=== PATIENT | male | born 1970 | race Caucasian/White ===

== ENCOUNTER 2022-08-05 11:23 | Inpatient (IN) | payer BC ==
[~2022-08-05] VITALS: Ht 170.2 cm; Wt 134.7 kg
[2022-08-05] MEDS ORDERED: ASPIRIN 81 MG CHEW (CHILDREN'S ASA) ONE (11:36)
[2022-08-05] MEDS ORDERED: NS IV 1000 ML 1,000 ML ONE (11:38)
--- NOTE | 2022-08-05 11:49 | ED Cardiac General ---
History of Present Illness General Chief Complaint: Chest Pain Stated Complaint: CHEST PAIN Nursing Triage Note: PT CO OF ELVATED HR TODAY, HAD SOME DIZZINESS YESTERDAY, DENIES C/P HAS SL SOA. STATES HAS SOME CLAMMINESS. PT HAS HX A-FIB Source: patient Exam Limitations: no limitations History of Present Illness Date Seen by Provider: Aug 05, 2022 Time Seen by Provider: 11:38 Initial Comments Patient is a 52-year-old male who presents to the emergency room today with a chief complaint of rapid heartbeat, feeling generally unwell, little short of breath and feeling clammy. He states he has had A-fib for at least the last 5 years. He tells me metoprolol is what he takes to control his rate. He started having symptoms about 24 hours ago. States he missed his dose of Eliquis last night. He did take it this morning. No recent illnesses such as fevers, chills, cough or congestion. No urinary problems or bowel problems. He is not having any chest pain. He does not have a local six sigma black belt engineer but is interested in finding some one here at [place]. He has seen Dr. Og in [facility]. Timing/Duration: 24 hours Severity: moderate Activities at Onset: activity NTG SL KITCHEN LEAD: No ASA po KITCHEN LEAD: No Associated Systoms: Diaphoresis, Shortness of Air, Other (Palpitation) Allergies and Home Medications Allergies Coded Allergies: No Known Drug Allergies (Unverified , 08/05/22) Patient Home Medication List Home Medication List Reviewed: Yes Review of Systems Review of Systems Constitutional: see HPI, malaise EENTM: No Symptoms Reported Respiratory: No Symptoms Reported Cardiovascular: Palpitations Gastrointestinal: No Symptoms Reported Genitourinary: No Symptoms Reported Musculoskeletal: no symptoms reported Skin: other (Clammy) Psychiatric/Neurological: No Symptoms Reported All Other Systems Reviewed Negative Unless Noted: Yes Past Rhbyern-Blzxaa-Yxtnyp Hx Patient Social History Tobacco Use?: Yes Tobacco type used: Cigarettes Smoking Status: Current Everyday Smoker Substance use?: No Alcohol Use?: No Pt feels they are or have been: No Immunizations Up To Date Influenza Vaccine Up-to-Date: No; Not Current Past Medical History Surgery/Hospitalization HX: A-FIB Physical Exam Vital Signs Vital Signs - First Documented 08/05/22 11:30 Pulse 160 Resp 20 B/P (MAP) 80/68 (72) Pulse Ox 97 Capillary Refill : Less Than 3 Seconds Height, Weight, BMI Height: '" Weight: lbs. oz. 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 Norm as Tested Skin: Normal Color, Diaphoresis Progress/Results/Core Measures Results/Orders Lab Results Laboratory Tests Test 08/05/22 11:40 08/05/22 11:43 08/05/22 12:05 Range/Units White Blood Count 11.5 H 4.3-11.0 10^3/uL Red Blood Count 5.26 4.30-5.52 10^6/uL Hemoglobin 15.5 13.3-17.7 g/dL Hematocrit 45 40-54 % Mean Corpuscular Volume 86 80-99 fL Mean Corpuscular Hemoglobin 30 25-34 pg Mean Corpuscular Hemoglobin Concent 34 32-36 g/dL Red Cell Distribution Width 12.3 10.0-14.5 % Platelet Count 346 130-400 10^3/uL Mean Platelet Volume 11.0 9.0-12.2 fL Immature Granulocyte % (Auto) 0 % Neutrophils (%) (Auto) 64 42-75 % Lymphocytes (%) (Auto) 26 12-44 % Monocytes (%) (Auto) 10 0-12 % Eosinophils (%) (Auto) 0 0-10 % Basophils (%) (Auto) 0 0-10 % Neutrophils # (Auto) 7.4 1.8-7.8 10^3/uL Lymphocytes # (Auto) 3.0 1.0-4.0 10^3/uL Monocytes # (Auto) 1.1 H 0.0-1.0 10^3/uL Eosinophils # (Auto) 0.0 0.0-0.3 10^3/uL Basophils # (Auto) 0.0 0.0-0.1 10^3/uL Immature Granulocyte # (Auto) 0.0 0.0-0.1 10^3/uL Sodium Level 141 135-145 MMOL/L Potassium Level 4.0 3.6-5.0 MMOL/L Chloride Level 108 H 98-107 MMOL/L Carbon Dioxide Level 19 L 21-32 MMOL/L Anion Gap 14 5-14 MMOL/L Blood Urea Nitrogen 19 H 7-18 MG/DL Creatinine 0.99 0.60-1.30 MG/DL Estimat Glomerular Filtration Rate 92 BUN/Creatinine Ratio 19 Glucose Level 165 H 70-105 MG/DL Calcium Level 9.2 8.5-10.1 MG/DL Corrected Calcium 9.0 8.5-10.1 MG/DL Magnesium Level 1.9 1.6-2.4 MG/DL Total Bilirubin 0.4 0.1-1.0 MG/DL Aspartate Amino Transf (AST/SGOT) 17 5-34 U/L Alanine Aminotransferase (ALT/SGPT) 27 0-55 U/L Alkaline Phosphatase 70 40-136 U/L Troponin I < 0.028 <0.028 NG/ML Total Protein 7.4 6.4-8.2 GM/DL Albumin 4.2 3.2-4.5 GM/DL Glucometer 156 H 70-110 MG/DL Prothrombin Time 16.3 H 12.2-14.7 SEC INR Comment 1.3 0.8-1.4 Activated Partial Thromboplast Time 31 24-35 SEC My Orders Orders - FANTASMA LO MD Aspirin Chewable Tablet (Baby Aspirin Ch (08/05/22 11:36) Ns Iv 1000 Ml (Sodium Chloride 0.9%) (08/05/22 11:38) Cbc With Automated Diff (08/05/22 11:46) Magnesium (08/05/22 11:46) Chest 1 View, Ap/Pa Only (08/05/22 11:46) Ekg Tracing (08/05/22 11:46) Comprehensive Metabolic Panel (08/05/22 11:46) Protime With Inr (08/05/22 11:46) Partial Thromboplastin Time (08/05/22 11:46) O2 (08/05/22 11:46) Monitor-Rhythm Ecg Trace Only (08/05/22 11:46) Lipid Panel (08/06/22 06:00) Ed Iv/Invasive Line Start (08/05/22 11:46) Troponin I Farrah (08/05/22 11:46) Diltiazem Injection (Cardizem Injection) (08/05/22 12:00) Diltiazem Drip Pre-Mix (Cardizem Drip Pr (08/05/22 12:00) Diltiazem Injection (Cardizem Injection) (08/05/22 11:51) Ed Admission (Communication) (08/05/22 12:49) Medications Given in ED Current Medications Medications Dose Ordered Sig/Julee Route Start Time Stop Time Status Last Admin Dose Admin Aspirin 81 mg STK-MED ONCE .ROUTE 08/05/22 11:36 08/05/22 11:40 DC 08/05/22 11:40 324 MG Diltiazem HCl 20 mg ONCE ONCE IVP 08/05/22 12:00 08/05/22 12:01 DC 08/05/22 11:57 20 MG Sodium Chloride 1,000 ml @ ud STK-MED ONCE .ROUTE 08/05/22 11:38 08/05/22 11:43 DC 08/05/22 11:40 1,000 MLS/HR Vital Signs/I&O 08/05/22 08/05/22 08/05/22 11:30 11:57 12:06 Pulse 160 158 112 Resp 20 B/P (MAP) 80/68 (72) 134/110 116/96 Pulse Ox 97 Blood Pressure Mean: 72 Progress Progress Note : Time: 14:27 Progress Note Patient seen and examined by me, evaluation today includes physical exam, EKG x2, CBC, comprehensive metabolic panel, troponin, coags, chest x-ray. Physical exam pertinent for obese male no acute distress slightly diaphoretic irregularly irregular heart tachycardic in the 160s. Clear lungs. Soft abdomen, no edema in his lower extremities. No focal neurologic deficits. Mentating normally. V ital signs blood pressure initially difficult to get secondary to patient's obesity ultimately obtained a blood pressure in the 120s systolic. Differential diagnosis based on history and physical, A-fib with RVR, acute coronary syndrome, medication noncompliance resulting in rebound tachycardia Labs reviewed, CBC is normal, chemistry shows slightly elevated serum glucose otherwise basically normal, coags are normal, troponin is undetectable. Initial EKG A-fib RVR at 169. Chest x-ray unremarkable, clear. Patient treated with 20 mg of IV Cardizem as a bolus and then a 5 mg an hour drip started. Shortly after the bolus patient's heart rate came down into the 80s and 90s. Second EKG shows A-fib rate 110 with paired PVCs slightly prolonged QTc at 520. Patient is feeling much better after the bolus and drip initiated. He is agreeable to admission. Case is discussed with Dr. Diaz on for cardiology for consultation and Dr. Badillo on for the hospitalist service. Initial ECG Impression Date: Aug 05, 2022 Initial ECG Impression Time: 11:30 Initial ECG Rate: 169 Initial ECG Rhythm: A Fib/Flutter Initial ECG Impression: Atrial Fibrillation w/RVR EKG : EKG Time: 12:07 Rate: 110 Rhythm: A Fib/Flutter ECG Comparisson: Changed Comment Rate reduced from 1 60-1 10, paired PVCs noted, right bundle branch block, no overt ST segment elevation or depression Diagnostic Imaging Diagonstic Imaging: Xray Plain Films/CT/US/NM/MRI: chest Comments [facility]. [place], [place] NAME: YAO HERMOSILLO [facility] REC#: [id number] PT STATUS: REG ER : 1970 PHYSICIAN: FANTASMA LO MD ADMIT DATE: 08/05/22/ER Draft Date of Exam:08/05/22 CHEST 1 VIEW, AP/PA ONLY CLINICAL INDICATION: Patient with chest pain. EXAM: Portable chest x-ray upright view. COMPARISON: None. FINDINGS: Lungs/pleura: There is calcified granuloma involving the periphery of the left midlung field. Otherwise, lungs are clear. There is no pneumothorax. There is no pleural effusion. Mediastinum: Unremarkable. Pulmonary vasculature: Unremarkable. Heart: Unremarkable. Bones/extrathoracic soft tissue: There are degenerative spurs involving the thoracic spine. IMPRESSION: There is no radiographic evidence of acute cardiopulmonary process. Dictated on workstation # [id number] Dict: 08/05/22 1220 Trans: 08/05/22 1224 [facility] [id number] Interpreted by: VIDAL IRBY MD Electronically signed by: Critical Care Note Critical Care Start Time: 11:38 Stop Time: 13:00 Total Time (minutes) 30 minutes critical care time in evaluation and management of this patient with atrial fibrillation with rapid ventricular response. Time includes initial evaluation, review and interpretation of EKG demonstrating A-fib RVR, management of A-fib RVR with IV Cardizem bolus and drip. Review and interpretation of labs, imaging. Discussion with admitting provider, discussion with six sigma black belt engineer. Departure Communication (Admissions) Time/Spoke to Admitting Phy: 12:[address] Badillo (hospitalist) Time/Spoke to Consulting Phy: 12:[address] Diaz (Cards) Impression Primary Impression: Atrial fibrillation with RVR Disposition: ADMITTED INPATIENT Condition: Stable Admissions Decision to Admit Reason: Admit from ER (General) Decision to Admit/Date: Aug 05, 2022 Time/Decision to Admit Time: 13:12 Departure-Patient Inst. Referrals: LUIS SANCHES (PCP/Family) Primary Care Physician FANTASMA LO MD Aug 05, 2022 11:49
[2022-08-05 11:52] LABS: BASOPHILS % (AUTO) 0 % (0-10); EOSINOPHILS % (AUTO) 0 % (0-10); HEMATOCRIT 45 % (40-54); HEMOGLOBIN 15.5 g/dL (13.3-17.7); LYMPHOCYTES % (AUTO) 26 % (12-44); MEAN CORPUSCULAR HEMOGLOBIN 30 pg (25-34); MEAN CORPUSCULAR HGB CONC 34 g/dL (32-36); MEAN CORPUSCULAR VOLUME 86 fL (80-99); MONOCYTES # (AUTO) 1.1 10^3/uL (0.0-1.0); MONOCYTES % (AUTO) 10 % (0-12); NEUTROPHILS # (AUTO) 7.4 10^3/uL (1.8-7.8); NEUTROPHILS % (AUTO) 64 % (42-75); PLATELET COUNT 346 10^3/uL (130-400); WHITE BLOOD COUNT 11.5 10^3/uL (4.3-11.0)
[2022-08-05] MEDS ORDERED: dilTIAZem DRIP PRE-MIX 125 ML IV SCH (12:00)
[2022-08-05 12:01] LABS: ALBUMIN 4.2 GM/DL (3.2-4.5)
[2022-08-05 12:02] LABS: CALCIUM 9.2 MG/DL (8.5-10.1)
[2022-08-05 12:03] LABS: TOTAL PROTEIN 7.4 GM/DL (6.4-8.2)
[2022-08-05 12:05] LABS: BILIRUBIN,TOTAL 0.4 MG/DL (0.1-1.0)
[2022-08-05 12:07] LABS: CREATININE SERUM 0.99 MG/DL (0.60-1.30)
[2022-08-05 12:10] LABS: MAGNESIUM 1.9 MG/DL (1.6-2.4)
--- NOTE | 2022-08-05 12:25 | Diagnostic Imaging Report ---
CLINICAL INDICATION: Patient with chest pain. EXAM: Portable chest x-ray upright view. COMPARISON: None. FINDINGS: Lungs/pleura: There is calcified granuloma involving the periphery of the left midlung field. Otherwise, lungs are clear. There is no pneumothorax. There is no pleural effusion. Mediastinum: Unremarkable. Pulmonary vasculature: Unremarkable. Heart: Unremarkable. Bones/extrathoracic soft tissue: There are degenerative spurs involving the thoracic spine. IMPRESSION: There is no radiographic evidence of acute cardiopulmonary process. Dictated by: Dictated on workstation # [id number]
--- NOTE | 2022-08-05 12:48 | History & Physical-Hospitalist ---
History of Present Illness HPI/Chief Complaint Patient is a 52-year-old male who presented to the emergency department due to elevated heart rate and shortness of breath. He reports that he has A-fib and that this happens frequently. 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 He states his symptoms started yesterday and continued prompting him to seek evaluation in the emergency department. He previously followed with Dr. Og in [place] but now that he is no longer traveling he would like to establish with someone in [place]. He does take Eliquis regularly and has been but did miss his evening dose last night. He was given a Cardizem bolus and his heart rate improved into the 80s but then quickly bounced back up into the 120s while I was in the room. He is being admitted on a Cardizem drip to the ICU. Of note he did have some low blood pressures documented in the emergency department but after cuff was repositioned his systolics remained in the 150s and 160s. Source: patient Date Seen 08/05/22 Attending Physician Jeff Morin PCP Admitting Physician: Attending Physician: Referring Physician Date of Admission Home Medications & Allergies Home Medications Reviewed patient Home Medication Reconciliation performed by pharmacy medication reconciliations cartography technician and/or nursing. Patients Allergies have been reviewed. Allergies Allergies Coded Allergies No Known Drug Allergies (Unverified08/05/22) Past Tahldbq-Gqmixr-Fktevd Hx Patient Social History Tobacco Use?: Yes Tobacco type used: Cigarettes Smoking Status: Current Everyday Smoker Substance use?: No Alcohol Use?: No Pt feels they are or have been: No Current Status Advance Directives: No Communicates: Verbally Primary Language: Indian Preferred Spoken Language: Indian Is interpretation needed?: No Implanted or Applied Medical D: None Past Medical History Atrial Fibrillation, Hypertension Diabetes, Non-Insulin dep Review of Systems Constitutional: see HPI Physical Exam Physical Exam Vital Signs Vital Signs - First Documented 08/05/22 11:30 Pulse 160 Resp 20 B/P (MAP) 80/68 (72) Pulse Ox 97 Capillary Refill : Less Than 3 Seconds Height, Weight, BMI Height: '" Weight: lbs. oz. kg; 57.00 BMI Method: General Appearance: No Apparent Distress, Obese Respiratory: Lungs Clear, No Accessory Muscle Use Cardiovascular: No Murmur, Irregularly Irregular, Tachycardia Gastrointestinal: Normal Bowel Sounds, Non Tender, Soft Extremity: No Calf Tenderness, No Pedal Edema Neurologic/Psychiatric: Alert, Oriented x3, Normal Mood/Affect Skin: Normal Color, Warm/Dry Results Results/Procedures Labs Laboratory Tests 08/05/22 11:40 Patient resulted labs reviewed. Imaging: Reviewed Imaging Report Imaging [facility]. [place], [place] NAME: YAO HERMOSILLO [facility] REC#: [id number] PT STATUS: REG ER : 1970 PHYSICIAN: FANTASMA LO MD ADMIT DATE: 08/05/22/ER Signed Date of Exam:08/05/22 CHEST 1 VIEW, AP/PA ONLY CLINICAL INDICATION: Patient with chest pain. EXAM: Portable chest x-ray upright view. COMPARISON: None. FINDINGS: Lungs/pleura: There is calcified granuloma involving the periphery of the left midlung field. Otherwise, lungs are clear. There is no pneumothorax. There is no pleural effusion. Mediastinum: Unremarkable. Pulmonary vasculature: Unremarkable. Heart: Unremarkable. Bones/extrathoracic soft tissue: There are degenerative spurs involving the thoracic spine. IMPRESSION: There is no radiographic evidence of acute cardiopulmonary process. Dictated by: Dictated on workstation # [id number] Dict: 08/05/22 1220 Trans: 08/05/22 1229 CV [id number] Interpreted by: VIDAL IRBY MD Electronically signed by: VIDAL IRBY MD 08/05/22 1229 Assessment/Plan Admission Diagnosis atrial fibrillation with RVR Admission Status: Inpatient Order (span 2 midnights) Reason for Inpatient Admission: see below Assessment and Plan atrial fibrillation with RVR HTN Cardiem gtt Continue eliquis (reports taking it daily but last filled in May per records?) Telemetry Cardiology consulted, appreciate recs Trend BP with cardizem NIDDMII BS 165 on arrival Takes metformin and glimepiride at home SSI for now DVT ppx: Eliquis Diagnosis/Problems Diagnosis/Problems (1) Hypertension (2) Non-insulin dependent type 2 diabetes mellitus (3) Obesity (4) Atrial fibrillation with RVR (5) Tobacco abuse Clinical Quality Measures AMI/AHF: ASA po Prior to arrival: BETHANY Zimmerman MD Aug 05, 2022 12:48
[2022-08-05 13:22] LABS: INR 1.3 (0.8-1.4); PROTHROMBIN TIME PATIENT 16.3 SEC (12.2-14.7)
[2022-08-05] MEDS ORDERED: polyethylene glycoL POWDER 17 GM (MIRALAX) PACK PO PRN (14:30)
[2022-08-05] MEDS ORDERED: MELATONIN 3 MG TABLET PO PRN (14:30)
[2022-08-05] MEDS ORDERED: ONDANSETRON 4 MG/2 ML (SDV) Z0FRAN IV PRN (14:30)
[2022-08-05] MEDS ORDERED: ACETAMINOPHEN 325 MG TABLET PO PRN (14:30)
[2022-08-05] MEDS ORDERED: CALCIUM CARBONATE 500 MG (TUMS) TAB.CHEW PO PRN (14:30)
--- NOTE | 2022-08-05 14:44 | Tele-ICU Consult ---
Progress Note 52 y/o male with known prior hx of a fib on eloquis and metoprolol Presents with fast heart rate EKG shiws A fib/rvr Troponins negative, no chest pain IMP" a fib rvr PLAN: cardizem bolus and drip To ICU for monitoting Cardiology to follow Focused Exam Height, Weight, BMI Height: '" Weight: lbs. oz. kg; 57.00 BMI Method: Labs Laboratory Tests 08/05/22 11:40 Results Results/Procedures Lab Laboratory Tests 08/05/22 11:40 Results Labs Labs Laboratory Tests 08/05/22 11:40: White Blood Count 11.5H, Red Blood Count 5.26, Hemoglobin 15.5, Hematocrit 45, Mean Corpuscular Volume 86, Mean Corpuscular Hemoglobin 30, Mean Corpuscular Hemoglobin Concent 34, Red Cell Distribution Width 12.3, Platelet Count 346, Mean Platelet Volume 11.0, Immature Granulocyte % (Auto) 0, Neutrophils (%) (Auto) 64, Lymphocytes (%) (Auto) 26, Monocytes (%) (Auto) 10, Eosinophils (%) (Auto) 0, Basophils (%) (Auto) 0, Neutrophils # (Auto) 7.4, Lymphocytes # (Auto) 3.0, Monocytes # (Auto) 1.1H, Eosinophils # (Auto) 0.0, Basophils # (Auto) 0.0, Immature Granulocyte # (Auto) 0.0, Sodium Level 141, Potassium Level 4.0, Chloride Level 108H, Carbon Dioxide Level 19L, Anion Gap 14, Blood Urea Nitrogen 19H, Creatinine 0.99, Estimat Glomerular Filtration Rate 92, BUN/Creatinine Ratio 19, Glucose Level 165H, Calcium Level 9.2, Corrected Calcium 9.0, Magnesium Level 1.9, Total Bilirubin 0.4, Aspartate Amino Transf (AST/SGOT) 17, Alanine Aminotransferase (ALT/SGPT) 27, Alkaline Phosphatase 70, Troponin I < 0.028, Total Protein 7.4, Albumin 4.2 08/05/22 11:43: Glucometer 156H 08/05/22 12:05: Prothrombin Time 16.3H, INR Comment 1.3, Activated Partial Thromboplast Time 31 AN LOWE MD Aug 05, 2022 14:44
[2022-08-05] MEDS: NS IV 1000 ML 1,000 ML IV SCH ×2 (15:29→23:59)
[2022-08-05] MEDS: inSUlin ASPART (NovoLOG) 1 UNIT/0.01 ML (CHARGE PER UNIT) SC SCH ×2 (16:09→20:49)
[2022-08-05 16:52] LABS: FREE T4 (FREE THYROXINE) 0.83 NG/DL (0.70-1.48)
--- NOTE | 2022-08-05 16:56 | CONSULTATION REPORT ---
DATE OF SERVICE: 08/05/2022 CHIEF COMPLAINT: Weakness, palpitations. HISTORY OF PRESENT ILLNESS: The patient is a 52-year-old gentleman with a history of paroxysmal atrial fibrillation dating back approximately 5 years, diabetes, obstructive sleep apnea, on CPAP, hypertension, who presents for evaluation of weakness and fatigue and palpitations. The patient states that he was diagnosed with atrial fibrillation approximately 5 years prior. He has been on metoprolol and Eliquis. He is managed by a industrial hygiene technician in [place]. He states that he recently moved up into this area and last saw his industrial hygiene technician approximately one year ago. He states that he fills his prescriptions outside of town and last took Eliquis on the day prior to admission in the morning, he did forget the evening dose. He states that he generally does not forget Eliquis doses. Otherwise, he comments that he began to experience some lightheadedness, dizziness, clamminess, and weakness and in that setting decided to come in for evaluation. He is somewhat unclear as to how long he has been experiencing this. He says that he may have been experiencing this for up to a week recently, but is not sure. He comments that he "pops" back and forth quite regularly and at this time given the fact that his symptoms would not morales, he decided to come in for evaluation. Here in the Emergency Room, his chest x-ray was negative for any acute process. EKG demonstrated atrial fibrillation with rapid ventricular response at approximately 160 beats per minute. He denies any flu-like symptoms. He just notes fatigue. He denies any chest pain, chest pressure, chest heaviness. No presyncope, syncope. No PND, no orthopnea. In the emergency room, he was treated with diltiazem 20 IV x1 and started on a diltiazem drip. REVIEW OF SYSTEMS: All systems were reviewed and are negative except for what has been described in HPI. PAST MEDICAL HISTORY: Paroxysmal atrial fibrillation, on Eliquis and metoprolol, diabetes, obstructive sleep apnea, on CPAP, hypertension. MEDICATIONS: Currently include Eliquis 5 mg p.o. b.i.d., metoprolol 50 mg p.o. b.i.d. ALLERGIES: NO KNOWN DRUG ALLERGIES. 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 He currently vapes. Does have a history of smoking, last was approximately 10 years ago. He does drink, states up to approximately 10 shots per night and prefers whiskey. FAMILY HISTORY: Significant for grandfather with heart disease. HOME PHYSICAL EXAMINATION: VITAL SIGNS: T-max, afebrile, heart rate 110-160s, respiratory rate 20, blood pressure 80-134 over 60s-110s, satting greater than 97% on room air. GENERAL: He is in no acute distress. He is resting comfortably in the bed. NECK: Soft and supple. No cervical lymphadenopathy or thyromegaly. LUNGS: Distant, but no pamella wheezing, rales or rhonchi. HEART: Irregularly irregular, tachycardic, otherwise distant heart sounds. No pamella murmurs, gallops or rubs are appreciated. ABDOMEN: Obese, soft, nontender, nondistended, no hepatosplenomegaly. EXTREMITIES: Warm and well perfused. He has no cyanosis or clubbing. He does have trace edema in the bilateral lower extremities. SKIN: No lesions, rashes or ecchymosis are noted. LABS AND IMAGING: Significant for white blood cell count of 11.5, hematocrit of 45, platelets of 346. LFTs within normal limits. INR is 1.3. Sodium 141, potassium 4.0, chloride 108, bicarbonate 19, BUN 19, creatinine is 1.0. Chest x-ray shows no acute intrathoracic process. EKG demonstrates atrial fibrillation with rapid ventricular response to the 160s, right bundle branch block and a left anterior fascicular block. ASSESSMENT AND PLAN: In short, the patient is a 52-year-old gentleman with the above-mentioned medical problems who presents for evaluation of palpitations and fatigue. First issue is atrial fibrillation with rapid ventricular response. His heart rates are controlled with diltiazem down in the 80s-110 range. He did have a transient drop in his blood pressure, but has subsequently come up. For now, we will continue him on the diltiazem drip and look to reinitiate his Eliquis as well as his metoprolol at half dose to start 25 mg p.o. b.i.d. I do not think pursuing a DC cardioversion strategy makes sense, particularly with the patient stating that he has been dealing with this for the better part of 5 years and pops back and forth from normal sinus into the AFib regularly. We would only consider cardioversion should he become hypotensive for an extended period of time. DISPOSITION: We will continue to follow along. We will obtain an echocardiogram. We will also check lactate, BNP, trend his troponins. Check an A1c and fasting lipid panel for risk factor stratification purposes as well. Thank you very much for allowing me to participate in his care. Job ID: [id number] DocumentID: [id number] Dictated Date: 08/05/2022 16:00:22 [employer] Lumite Injector Date: 08/05/2022 16:54:00 Dictated By: CLAU DAWSON MD MTDD
[2022-08-05] MEDS: dilTIAZem DRIP PRE-MIX 125 ML IV SCH (18:56)
[2022-08-05] MEDS: APIXABAN 5 MG (ELIQUIS) TABLET PO SCH (20:43)
[2022-08-05] MEDS ORDERED: meTOprolol TARTRATE 25 MG (LOPRESSOR) TABLET PO SCH (21:00)
[2022-08-06] MEDS: dilTIAZem DRIP PRE-MIX 125 ML IV SCH (03:06)
[2022-08-06 04:16] LABS: HEMATOCRIT 41 % (40-54); HEMOGLOBIN 13.7 g/dL (13.3-17.7); MEAN CORPUSCULAR HEMOGLOBIN 29 pg (25-34); MEAN CORPUSCULAR HGB CONC 34 g/dL (32-36); MEAN CORPUSCULAR VOLUME 87 fL (80-99); MEAN PLATELET VOLUME 11.2 fL (9.0-12.2); PLATELET COUNT 263 10^3/uL (130-400); WHITE BLOOD COUNT 9.5 10^3/uL (4.3-11.0)
[2022-08-06 04:32] LABS: BUN/CREATININE RATIO 18; CALCIUM 8.4 MG/DL (8.5-10.1); CARBON DIOXIDE 19 MMOL/L (21-32); CHLORIDE 111 MMOL/L (98-107); CHOLESTEROL 131 MG/DL (< 200); CREATININE SERUM 0.88 MG/DL (0.60-1.30); GFR ESTIMATED 104; GLUCOSE 133 MG/DL (70-105); HDL CHOLESTEROL 26 MG/DL (40-60); POTASSIUM 3.7 MMOL/L (3.6-5.0); SODIUM 141 MMOL/L (135-145); TRIGLYCERIDES 149 MG/DL (<150); VLDL CHOLESTEROL 30 MG/DL (5-40)
[2022-08-06] MEDS: KCL 20 MEQ TAB (K-DUR) PO SCH (04:54)
[2022-08-06] MEDS: POTASSIUM CL 10MEQ/50ML IVPB 50 ML IV SCH (04:54)
[2022-08-06] MEDS ORDERED: NS IV 500 ML 500 ML IV PRN (05:00)
[2022-08-06] MEDS ORDERED: KCL 20 MEQ TAB (K-DUR) PO ONE (06:00)
[2022-08-06] MEDS: MAGNESIUM 1 GM/100 ML IVPB 100 ML IV SCH (06:12)
[2022-08-06] MEDS: inSUlin ASPART (NovoLOG) 1 UNIT/0.01 ML (CHARGE PER UNIT) SC SCH ×4 (06:13→22:07)
[2022-08-06] MEDS: APIXABAN 5 MG (ELIQUIS) TABLET PO SCH ×2 (07:57→20:12)
[2022-08-06] MEDS: NS IV 1000 ML 1,000 ML IV SCH ×2 (07:58→15:07)
[2022-08-06] MEDS: meTOprolol TARTRATE 25 MG (LOPRESSOR) TABLET PO SCH ×2 (08:48→20:12)
--- NOTE | 2022-08-06 09:28 | Cardiology Progress Note ---
Subjective Date Seen by Provider: Aug 06, 2022 Time Seen by Provider: 07:45 Subjective/Events-last exam No acut4e events overnight. Still in AF but HRs controlled. No sxs. States he feels good. Focused Exam Lactate Level 08/05/22 16:27: Lactic Acid Level 1.34 Objective-Cardiology Exam Last Set of Vital Signs Vital Signs 08/06/22 08:00 Temp 36.8 Pulse 93 B/P (MAP) 134/93 (107) Pulse Ox 94 O2 Delivery Room Air I&O Intake and Output 08/06/22 00:00 Intake Total 3075 ml Output Total 575 ml Balance 2500 ml Intake Oral 950 ml IV Total 2125 ml Output Urine Total 575 ml Daily Weight Change No Other physical findings GENERAL: He is in no acute distress. He is resting comfortably in the bed. NECK: Soft and supple. No cervical lymphadenopathy or thyromegaly. LUNGS: Distant lung sounds, but no pamella wheezing or rhonchi. Faint rales are noted. HEART: Irregularly irregular, otherwise distant heart sounds. No pamella murmurs, gallops or rubs are appreciated. ABDOMEN: Obese, soft, nontender, nondistended, no hepatosplenomegaly. EXTREMITIES: Warm and well perfused. He has no cyanosis or clubbing. He does have trace edema in the bilateral lower extremities. SKIN: No lesions, rashes or ecchymosis are noted. Results Lab Laboratory Tests 08/05/22 11:40 08/06/22 04:05 A/P-Cardiology Assessment/Plan 52M with the above-mentioned medical problems who presents for evaluation of palpitations and fatigue. \\ ## AF with rapid ventricular response: HRs now in the 60s-80s this AM. continues on diltiazem gtt. TSH and FT4 in normal range. Tn neg. - cont Eliquis 5 bid - increase metop to 25 bid - transition to dilt immediate release Q6 basis - d/c dilt gtt - f/u ECHO from today. - I do not think pursuing a DC cardioversion strategy makes sense in this gentleman, particularly with the patient stating that he has been dealing with this for the better part of 5 years and "pops back and forth from normal sinus into the AFib regularly." Heart rate control would be the strategy of choice here. We would only consider cardioversion should he become hypotensive for an extended period of time. Best option would be referral to EP as outpatient for consideration of AF ablation. ##DM: f/u on a1c, not on anti-diabetic regimen ## Risk factor modification: - f./u on a1c - lipid panel (*TG 149, TC 131, LDL 84, HDL 26) ## DISPOSITION: - cont to follow along. . CLAU DAWSON MD Aug 06, 2022 09:28
[2022-08-06] MEDS ORDERED: FUROSEMIDE 40 MG/4 ML INJ (LASIX) IVP ONE (09:30)
[2022-08-06] MEDS ORDERED: CATHETER FLUSH 10 ML SYR IVP PRN (10:00)
[2022-08-06] MEDS ORDERED: APIX5TAB PO (14:19)
[2022-08-06] MEDS ORDERED: MTP100TCR PO (14:19)
[2022-08-06] MEDS ORDERED: GLIM2TAB4 PO (14:19)
--- NOTE | 2022-08-06 17:27 | Progress Note - Hospitalist ---
Subjective HPI/CC On Admission Date Seen by Provider: Aug 06, 2022 Time Seen by Provider: 09:10 Patient is a 52-year-old male who presented to the emergency department due to elevated heart rate and shortness of breath. He reports that he has A-fib and that this happens frequently. 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 He states his symptoms started yesterday and continued prompting him to seek evaluation in the emergency department. He previously followed with Dr. Og in [place] but now that he is no longer traveling he would like to establish with someone in [place]. He does take Eliquis regularly and has been but did miss his evening dose last night. He was given a Cardizem bolus and his heart rate improved into the 80s but then quickly bounced back up into the 120s while I was in the room. He is being admitted on a Cardizem drip to the ICU. Of note he did have some low blood pressures documented in the em ergency department but after cuff was repositioned his systolics remained in the 150s and 160s. Subjective/Events-last exam He is feeling well. He has no complaints. He denies chest pain and palpitations. Focused Exam Lactate Level 08/05/22 16:27: Lactic Acid Level 1.34 Objective Exam Vital Signs Vital Signs Date Time Temp Pulse Resp B/P (MAP) Pulse Ox O2 Delivery O2 Flow Rate FiO2 08/06/22 16:00 93 Room Air 08/06/22 16:00 125 141/109 (120) 08/06/22 15:55 36.8 08/05/22 14:30 12 Capillary Refill : Less Than 3 Seconds General Appearance: No Apparent Distress, Obese Respiratory: Lungs Clear, No Respiratory Distress Cardiovascular: No Murmur, Irregularly Irregular Gastrointestinal: Normal Bowel Sounds, Soft Extremity: Normal Inspection, No Pedal Edema Neurologic/Psychiatric: Alert, Normal Mood/Affect Skin: Normal Color, Warm/Dry Results/Procedures Lab Laboratory Tests 08/06/22 04:05 Patient resulted labs reviewed. Imaging: Reviewed Imaging Report Assessment/Plan Assessment and Plan Assess & Plan/Chief Complaint AFib with RVR HTN Cardiology following Cardizem Metoprolol Eliquis NIDDMII Resume Glimepiride Sliding scale insulin Morbid obesity Clinically significant, no acute management needs Diagnosis/Problems Diagnosis/Problems (1) Atrial fibrillation with RVR Status: Acute (2) Non-insulin dependent type 2 diabetes mellitus Status: Acute (3) Hypertension Status: Acute (4) Obesity Status: Chronic Clinical Quality Measures AMI/AHF: ASA po Prior to arrival: DONA Hannon MD Aug 06, 2022 17:27
[2022-08-07 04:48] LABS: HEMATOCRIT 42 % (40-54); HEMOGLOBIN 14.4 g/dL (13.3-17.7); MEAN CORPUSCULAR HEMOGLOBIN 30 pg (25-34); MEAN CORPUSCULAR HGB CONC 35 g/dL (32-36); MEAN CORPUSCULAR VOLUME 86 fL (80-99); MEAN PLATELET VOLUME 11.5 fL (9.0-12.2); PLATELET COUNT 250 10^3/uL (130-400); WHITE BLOOD COUNT 9.3 10^3/uL (4.3-11.0)
[2022-08-07 05:09] LABS: POTASSIUM 3.6 MMOL/L (3.6-5.0)
[2022-08-07 05:10] LABS: CALCIUM 8.9 MG/DL (8.5-10.1)
[2022-08-07 05:14] LABS: CREATININE SERUM 0.86 MG/DL (0.60-1.30)
[2022-08-07] MEDS: inSUlin ASPART (NovoLOG) 1 UNIT/0.01 ML (CHARGE PER UNIT) SC SCH ×2 (05:57→11:14)
[2022-08-07] MEDS: POTASSIUM CL 10MEQ/50ML IVPB 50 ML IV SCH (05:57)
[2022-08-07] MEDS: MAGNESIUM 1 GM/100 ML IVPB 100 ML IV SCH ×5 (05:57→14:44)
[2022-08-07] MEDS: KCL 20 MEQ TAB (K-DUR) PO SCH (05:57)
[2022-08-07] MEDS ORDERED: GLIMEPIRIDE 2 MG (AMARYL) TAB PO SCH (06:30)
[2022-08-07] MEDS ORDERED: metFORMIN 500 MG (GLUCOPHAGE) TAB PO SCH (07:00)
[2022-08-07] MEDS: APIXABAN 5 MG (ELIQUIS) TABLET PO SCH (08:16)
[2022-08-07] MEDS: meTOprolol TARTRATE 25 MG (LOPRESSOR) TABLET PO SCH (08:16)
[2022-08-07] MEDS ORDERED: AMIODARONE FOR BOLUS 150 MG in NS (IVPB) 100 ML IV ONE (08:30)
[2022-08-07] MEDS ORDERED: AMIODARONE INJECTION 450 MG in NORMAL SALINE 250 ML IV SCH (08:30)
[2022-08-07 08:33] LABS: MAGNESIUM 1.7 MG/DL (1.6-2.4); PHOSPHORUS 3.8 MG/DL (2.3-4.7)
[2022-08-07] MEDS ORDERED: KCL 20 MEQ TAB (K-DUR) PO ONE (09:00)
--- NOTE | 2022-08-07 09:04 | Cardiology Progress Note ---
Subjective Date Seen by Provider: Aug 07, 2022 Time Seen by Provider: 07:45 Subjective/Events-last exam No acute issues overnight. HRs increased after transition to dilt po. AF with RVR to 140s noted overnight. Focused Exam Lactate Level 08/05/22 16:27: Lactic Acid Level 1.34 Objective-Cardiology Exam Last Set of Vital Signs Vital Signs 08/07/22 15:29 Temp 36.5 I&O Intake and Output 08/07/22 00:00 Intake Total 2147 ml Output Total 4375 ml Balance -2228 ml Intake Oral 2022 ml IV Total 125 ml Output Urine Total 4375 ml Other physical findings GENERAL: He is in no acute distress. He is resting comfortably in the bed. NECK: Soft and supple. No cervical lymphadenopathy or thyromegaly. LUNGS: Distant lung sounds, but no pamella wheezing or rhonchi. Faint rales are noted. HEART: Irregularly irregular, otherwise distant heart sounds. No pamella murmurs, gallops or rubs are appreciated. ABDOMEN: Obese, soft, nontender, nondistended, no hepatosplenomegaly. EXTREMITIES: Warm and well perfused. He has no cyanosis or clubbing. He does have trace edema in the bilateral lower extremities. SKIN: No lesions, rashes or ecchymosis are noted. Results Lab Laboratory Tests 08/07/22 04:30 A/P-Cardiology Assessment/Plan 52M with the above-mentioned medical problems who presents for evaluation of palpitations and fatigue. \ ## AF with rapid ventricular response: HRs back up to 140s in AF with RVR. ECHO with normal LV/RV size and funciton. LVEF of 55-60%; trace TR wiht RVSP of 40mmHgon. - start amio bolus and gtt iv - cont Eliquis 5 bid - increase metop to 50 bid - cont dilt 50 Q6 for now - pt converted to NSR on amio bolus this afternoon - technically [id number] score of 1 (HTN)- Eliquis not indicated but pt has already been on for many years. ##pre-DM: a1c returned at 5.9 ## Risk factor modification: - f./u on a1c - lipid panel (*TG 149, TC 131, LDL 84, HDL 26) ## DISPOSITION: - cont to follow along. - cont amio, dilt, metop, eliquis. - Best option would be referral to EP as outpatient for consideration of AF ablation. ## HOME REGIMEN FOLLOWS: - amiodarone 400mg po TID x 7 days, amiodarone 400mg po BID x 7 days, amiodarone 400mg po QD x 7 days, then amiodarone 200mg po therafter - metop 75mg po BID - eliquis 5mg po BID - lisinopril 5mg po QD - HCTZ 25mg po QD CLAU DAWSON MD Aug 07, 2022 09:04
--- NOTE | 2022-08-07 10:09 | Tele-ICU Progress Note ---
Subjective Date Seen by a Provider: Aug 07, 2022 Time Seen by a Provider: 10:09 Subjective/Events-last exam (Tele-ICU Physician , Progress Note ) Service provided via interactive audio and video telecommunications E-CARE system to a patient admitted to ICU bed in [facility]. Patient is seen today due to persistent need of ICU care Available chart/ vitals / labs / Images reviewed Video assessment done using teleICU camera, rest of exam as per RN Discussed with RN Events overnight : Afebrile hemodynamically stable Respiratory - I/O = Drips: Pressors- no Hospital course: A/P A fib RVR - as per cards - on amio - CV planned for today , EP as potpatient - AC with Eliquis ÓSCAR- on cpap at home - ? compliance Mild pulm HTN - RVSP 40 mmGh - due to above ? DM II - as per PCP Lines : , (Central Line Necessity Reviewed) Luciano: OG: Nutrition: Analgesia: Anxiety/ delirium VTE Prophylaxis: Stress Ulcer Prophylaxis: Plans in collaboration with bedside consultants and IM MDs. Discussed with RN to reach out if any questions or concerns Case and care daily discussed on multidisciplinary rounds ( RN, PharmD, Nutrition and Respiratory Therapy) A total of 5 minutes of critical care time was devoted to this patient today, required to treat and/or prevent further deterioration of critical care condition ( as above ) . I am remotely monitoring this patient from another state. I am unable to do the bedside exam, and history/physical and pertinent information is taken from other notes in the computer and bedside staff. Sepsis Event Evaluation Height, Weight, BMI Height: '" Weight: lbs. oz. kg; 46.98 BMI Method: Focused Exam Lactate Level 08/05/22 16:27: Lactic Acid Level 1.34 Exam Exam Patient acknowledged, consented, and participated in this virtual visit which was conducted using real time audio/video Vital Signs Date Time Temp Pulse Resp B/P (MAP) Pulse Ox O2 Delivery O2 Flow Rate FiO2 08/07/22 10:00 89 120/84 (96) 93 Room Air 08/07/22 09:00 112 121/59 (79) 94 Room Air 08/07/22 08:50 134 136/72 08/07/22 08:22 36.4 08/07/22 08:00 156 136/72 (93) 96 Room Air 08/07/22 07:50 135 08/07/22 07:00 104 94/85 (88) 96 Room Air 08/07/22 06:00 105 152/102 (119) 96 Room Air 08/07/22 05:00 124 128/84 (99) 91 Room Air 08/07/22 04:00 114 127/89 (109) 92 Room Air 08/07/22 04:00 93 Room Air 08/07/22 03:26 36.0 08/07/22 03:00 106 107/82 (90) 89 Room Air 08/07/22 02:00 103 107/80 (90) 93 Room Air 08/07/22 01:00 98 101/65 (81) 93 Room Air 08/07/22 01:00 118 08/07/22 00:00 95 133/74 (80) 89 Room Air 08/06/22 23:59 93 Room Air 08/06/22 23:47 36.5 08/06/22 23:00 95 129/96 (101) 95 Room Air 08/06/22 22:00 83 93 Room Air 08/06/22 21:00 106 106/61 (79) 94 Room Air 08/06/22 20:00 36.7 Room Air 08/06/22 20:00 93 Room Air 08/06/22 20:00 124 133/106 (110) 93 Room Air 08/06/22 19:00 122 08/06/22 19:00 122 160/91 (129) 96 Room Air 08/06/22 18:53 137 157/133 08/06/22 18:00 102 145/118 (127) 95 Room Air 08/06/22 17:00 131 153/119 (130) 95 Room Air 08/06/22 16:00 93 Room Air 08/06/22 16:00 125 141/109 (120) 94 Room Air 08/06/22 15:55 36.8 08/06/22 14:00 137 123/91 (102) 95 Room Air 08/06/22 12:07 124 08/06/22 12:00 97 Room Air 08/06/22 12:00 113 120/99 (106) 95 Room Air 08/06/22 11:43 36.0 I & O 08/07/22 07:00 Intake Total 2572 ml Output Total 4475 ml Balance -1903 ml Height & Weight Height: '" Weight: lbs. oz. kg; 46.98 BMI Method: General Appearance: No Apparent Distress, Obese HEENT: PERRL/EOMI Neck: Normal Inspection Respiratory: Lungs Clear, No Respiratory Distress Cardiovascular: No Murmur, Irregularly Irregular Capillary Refill: Less Than 3 Seconds Extremity: Normal Inspection, No Pedal Edema Neurologic/Psychiatric: Alert, Normal Mood/Affect Skin: Normal Color, Warm/Dry Results Lab Laboratory Tests 08/05/22 11:40 08/06/22 04:05 08/07/22 04:30 Assessment/Plan Assessment/Plan 1 LUZ MITCHELL MD Aug 07, 2022 10:09
[2022-08-07] MEDS ORDERED: lisINopril 10 MG (PRINIVIL) TABLET PO SCH (12:30)
[2022-08-07] MEDS ORDERED: hydrALAZINE (APESOLINE) 20 MG/ML VIAL IV PRN (12:30)
[2022-08-07] MEDS: dilTIAZem DRIP PRE-MIX 125 ML IV SCH (14:30)
[2022-08-07] MEDS ORDERED: MIDAZOLAM 2 MG/2 ML (VERSED) VIAL ONE (15:18)
[2022-08-07] MEDS ORDERED: proPOfol 200 MG/20 ML (DIPRIVAN) VIAL IV ONE (15:20)
[2022-08-07] MEDS ORDERED: AMIODARONE 200 MG (CORDARONE) TAB PO SCH (17:30)
[2022-08-07] MEDS ORDERED: NS IV 500 ML 500 ML IV ONE (17:30)
[2022-08-07 17:45] VITALS: BP 154/103
[2022-08-07] MEDS ORDERED: LISI5TAB20 PO (18:03)
[2022-08-07] MEDS ORDERED: AMIO200T65 PO (18:03)
[2022-08-07] MEDS ORDERED: HYDR25TA4 PO (18:03)
[2022-08-07] MEDS ORDERED: METO75TA PO (18:03)
--- NOTE | 2022-08-07 19:16 | Discharge Summary ---
Discharge Summary Hospital Course Problems/Dx: (1) Atrial fibrillation with RVR Status: Acute (2) Non-insulin dependent type 2 diabetes mellitus Status: Acute (3) Hypertension Status: Acute (4) Obesity Status: Chronic Hospital Course Date of Admission: Aug 05, 2022 at 14:22 Admission Diagnosis : AFib with RVR Family Physician/Provider: Jeff Morin Date of Discharge: 08/07/22 Discharge Diagnosis: AFib with RVR Hospital Course: Nino Delvalle is a 52 year old male with PMH HTN, T2DM, AFib, morbid obesity, who was admitted with AFib with RVR. Cardiology was consulted and assisted with his care. He was treated with IV Cardizem and improved. He was transitioned to oral Cardizem and Metoprolol but he returned to RVR. He was started on an IV Amiodarone gtt. He remained in RVR. He underwent a cardioversion and returned to normal sinus rhythm. He was given a continued oral Amiodarone tapered loading dose, followed by a maintenance dose. He was continued on Metoprolol. He was continued on Eliquis. He was started on low dose Lisinopril and HCTZ due to HTN. He was continued on Glimepiride for well controlled type II diabetes. He was discharged home in stable condition. He should follow up with his PA Jeff Morin and establish with Cardiology, Dr. Son. Labs and Pending Lab Test: Laboratory Tests 08/06/22 21:15: Glucometer 123H 08/07/22 04:30: White Blood Count 9.3, Red Blood Count 4.87, Hemoglobin 14.4, Hematocrit 42, Mean Corpuscular Volume 86, Mean Corpuscular Hemoglobin 30, Mean Corpuscular Hemoglobin Concent 35, Red Cell Distribution Width 12.1, Platelet Count 250, Mean Platelet Volume 11.5, Sodium Level 139, Potassium Level 3.6, Chloride Level 106, Carbon Dioxide Level 21, Anion Gap 12, Blood Urea Nitrogen 12, Creatinine 0.86, Estimat Glomerular Filtration Rate 105, BUN/Creatinine Ratio 14, Glucose Level 127H, Calcium Level 8.9, Phosphorus Level 3.8, Magnesium Level 1.7 08/07/22 11:08: Glucometer 126H Microbiology 08/05/22 MRSA Screen - Final, Complete MRSA not isolated Home Meds Active Hydrochlorothiazide 25 Mg Tablet 25 Mg PO DAILY 30 Days Lisinopril 5 Mg Tablet 5 Mg PO DAILY 30 Days Metoprolol Tartrate 75 Mg Tablet 75 Mg PO BID 30 Days Amiodarone HCl 200 Mg Tablet 400 Mg PO TID 30 Days Reported Glimepiride 2 Mg Tablet 2 Mg PO DAILY LAST FILLED 06-06-2022 #30/30 DAY SUPPLY Eliquis (Apixaban) 5 Mg Tablet 5 Mg PO BID LAST FILLED 06-07-2022 #60/30 DAY SUPPLY Assessment/Pt Instructions See instructions Discharge Planning: >30 minutes discharge planning Discharge Instructions Discharge Diet: Low Sodium Diet, ADA Diet Activity as Tolerated: Yes Consultations Cardiology, TeleICU Discharge Physical Examination Vital Signs Vital Signs Date Time Temp Pulse Resp B/P (MAP) Pulse Ox O2 Delivery O2 Flow Rate FiO2 08/07/22 17:45 62 20 154/103 Room Air 08/07/22 17:00 97 08/07/22 15:29 36.5 General Appearance: No Apparent Distress, WD/WN Respiratory: Lungs Clear, No Respiratory Distress Cardiovascular: No Murmur, Irregularly Irregular Gastrointestinal: Normal Bowel Sounds, Soft Extremity: Normal Inspection, No Pedal Edema Neurologic/Psychiatric: Alert, Normal Mood/Affect Allergies: Coded Allergies: No Known Drug Allergies (Unverified , 08/05/22) Copy Copies To 1: REJI SON MD Discharge Summary Date of Admission Aug 05, 2022 at 14:22 Date of Discharge Aug 07, 2022 at 18:20 Discharge Date: Aug 07, 2022 Discharge Time: 18:20 Admission Diagnosis atrial fibrillation with RVR Consults/Procedures Consulations Cardiology, TeleICU Procedures Cardioversion Discharge Diagnosis AFib with RVR HTN NIDDMII Morbid obesity (1) Atrial fibrillation with RVR Status: Acute (2) Non-insulin dependent type 2 diabetes mellitus Status: Acute (3) Hypertension Status: Acute (4) Obesity Status: Chronic Clinical Quality Measures AMI/AHF: ASA po Prior to arrival: DONA Hannon MD Aug 07, 2022 19:16
[2022-08-07] MEDS ORDERED: meTOprolol TARTRATE 25 MG (LOPRESSOR) TABLET PO SCH (21:00)
[2022-08-08] MEDS ORDERED: lisINopril 5 MG (PRINIVIL) TABLET PO SCH (09:00)
== END 2022-08-07 18:20 | disposition home or self-care (01) | DRG 309 ==
LOC: ER 11:28 → ICU 14:22 → OBSVTOIN 14:22
PROVIDERS: ADMIT Family Medicine; ATTEND Internal Medicine
DX: I48.0 Paroxysmal atrial fibrillation (principal); Z68.42 Body mass index [BMI] 45.0-49.9, adult; I49.3 Ventricular premature depolarization; I45.10 Unspecified right bundle-branch block; I10 Essential (primary) hypertension; E11.9 Type 2 diabetes mellitus without complications; E66.01 Morbid (severe) obesity due to excess calories; G47.33 Obstructive sleep apnea (adult) (pediatric); I27.20 Pulmonary hypertension, unspecified; F17.210 Nicotine dependence, cigarettes, uncomplicated; Z79.84 Long term (current) use of oral hypoglycemic drugs; Z79.01 Long term (current) use of anticoagulants
CPT/HCPCS: 36415; 71045; 80048; 80053; 80061; 82947; 83036; 83605; 83735; 83880; 84100; 84439; 84443; 84484; 85025; 85027; 85610; 85730; 87081; 93005; 93306

== ENCOUNTER → 2022-10-08 | Outpatient (CLI) | payer BC ==
[~2022-10-08] VITALS: Ht 170 cm; Wt 136.0 kg
[~2022-10-08] MED LIST: AMIO200T65 PO; APIX5TAB PO; CATHETER FLUSH 10 ML SYR IVP PRN; GLIM2TAB4 PO; HYDR25TA4 PO; LISI5TAB20 PO; METO75TA PO; MTP100TCR PO; REGADENOSON 0.4 MG/5 ML SYR (LEXISCAN) IV ONE
[2022-10-08 09:10] VITALS: BP 169/108
[2022-10-08 09:26] VITALS: BP 216/104
--- NOTE | 2022-10-08 11:45 | Cardiology Stress Test Report ---
Stress Test Report Date of Procedure/Referring: Date of Procedure: October 08, 2022 PCP Jeff Morin Admitting Physician Admitting Physician: Attending Physician: Tiff Son MD Baseline Heart Rate: 59 Baseline Blood Pressure: Blood Pressure Systolic: 216 Blood Pressure Diastolic: 104 Baseline Vitals Vital Signs Date Time Temp Pulse Resp B/P (MAP) Pulse Ox O2 Delivery O2 Flow Rate FiO2 10/08/22 09:10 63 169/108 (128) Baseline EKG: Baseline EKG: RBBB Summary After explaining the procedure to the patient, he signed a consent and then brought to the stress nuclear laboratory. Patient received 0.4 mg Lexiscan for stress test, ECG, heart rate and blood pressure were monitored continuously. Resting and stress dose of radio tracer were injected, imaging was acquired and reviewed in short axis, horizontal long axis and vertical long axis views. TID: 1.18 SSS: 9 SDS: 0 EF: 56 Patient was unable to exercise beyond 5 minutes and 40 seconds on standard Octavio protocol, did not achieve his target heart rate, test was converted to Lexiscan Myoview stress test Patient tolerated Lexiscan well Baseline right bundle branch block persisted during test Diaphragmatic attenuation with fixed defect involving the mid to apical inferior wall with no reversible ischemia noted on SPECT images Normal left ventricular size, inferior wall is mey normally, ejection fraction 56% TIFF SON MD October 08, 2022 11:45
== END ==
LOC: CARD 07:38
PROVIDERS: ATTEND Internal Medicine Cardiovascular Disease
DX: I45.10 Unspecified right bundle-branch block (principal); J98.6 Disorders of diaphragm
CPT/HCPCS: 78452; 93017; A9502

== ENCOUNTER → 2023-01-29 | Outpatient (CLI) | payer BC ==
[~2023-01-29] MED LIST changes: -CATHETER FLUSH 10 ML SYR IVP PRN; -REGADENOSON 0.4 MG/5 ML SYR (LEXISCAN) IV ONE
--- NOTE | 2023-01-29 17:13 | Diagnostic Imaging Report ---
PROCEDURE: US Thyroid. TECHNIQUE: Multiple real-time grayscale images were obtained of the thyroid in various projections. INDICATION: Nontoxic thyroid nodule. COMPARISON: None. FINDINGS: Both thyroid lobes demonstrate smooth and homogenous background echotexture. Color flow Doppler demonstrates normal and symmetric vascularity bilaterally. The right lobe measures 5.7 cm in length, 2.0 cm AP, and 2.1 cm transverse. The left lobe measures 5.3 cm in length, 2.4 cm AP, and 1.6 cm transverse. The isthmus measures 0.4 cm. A nodule is seen in the mid right lobe of the thyroid measuring 1.4 x 1.1 x 1.1 cm with solid isoechoic features. IMPRESSION: 1. Nodule in the mid aspect of the right lobe of the thyroid measuring up to 1.4 cm. With size criteria and imaging characteristics, follow-up in 12 months is recommended with thyroid ultrasound. Dictated by: Dictated on workstation # [id number]
== END ==
LOC: RAD 11:00
PROVIDERS: ATTEND Internal Medicine Cardiovascular Disease
DX: E04.1 Nontoxic single thyroid nodule (principal)
CPT/HCPCS: 76536